=== PATIENT | male | born 1995 | race Caucasian/White ===

== ENCOUNTER 2016-10-27 09:14 | Emergency (ER) | payer OTHER ==
--- NOTE | 2016-10-27 10:38 | DIAGNOSTIC IMAGING REPORT ---
PROCEDURE: XR FOREARM - LEFT INDICATION: TRAUMA/INJURY TECHNIQUE: AP and lateral views. COMPARISON: None. FINDINGS: Osseous structures are normal. IMPRESSION: 1. Normal left forearm.
--- NOTE | 2016-10-27 10:38 | DIAGNOSTIC IMAGING REPORT ---
PROCEDURE: XR FOREARM - LEFT INDICATION: TRAUMA/INJURY TECHNIQUE: AP and lateral views. COMPARISON: None. FINDINGS: Osseous structures are normal. IMPRESSION: 1. Normal left forearm.
--- NOTE | 2016-10-27 11:08 | ED NURSING NOTES ---
Clinical Report - Nurses [place] [address] [address] [place] [address] 10/27/2016 9:17 Patient: GREGORIO ROSARIO TRIAGE Triage time 09:24. Acuity: LEVEL 3. Chief Complaint: INJURY TO THE LEFT FOREARM. Alert. No acute distress. ARCELIA COMA SCORE: [place] Coma Scale: 15- eyes open spontaneously (4); best verbal response- oriented x 4 (5); best motor response- obeys commands (6). --09:30 Jemima Pisano R.N. 09:24 10/27/16. BP: 114/54. HR: 63. RR: 16. O2 saturation: 100%. Temp: 97.6 F (oral). Pain level now: 10. --09:30 Jemima Pisano R.N. Weight: 58.9 kg stated. Height/Length: 70 inches Per Patient. BMI: 18.6. --09:27 Jemima Pisano R.N. Medications None. --09:25 Jemima Pisano R.N. Medication/allergy information source: the patient. --09:30 Jemima Pisano R.N. Allergies Penicillins. --09:25 Jemima Pisano R.N. History Arrived by private vehicle. Historian: patient. Unaccompanied. Primary physician (none). This occurred yesterday. Mechanism of injury: a single blow with a tool. PAST MEDICAL HX: Tetanus status: unknown. SOCIAL HX: Heavy tobacco smoker- less than 1 pack per day. Alcohol use; consumes two beers a week. No drug use. FALL RISK ASSESSMENT: Fall risk assessment completed. No fall risk identified. FUNCTIONAL ASSESSMENT: Functional assessment: no impairments noted. LEARNING NEEDS ASSESSMENT: The learning needs assessment revealed no barriers. --09:30 Jemima Pisano R.N. PROBLEMS: no known problems. ADDITIONAL SURGERIES: no known surgeries. Assessment GENERAL / NEURO / PSYCH: Alert. Oriented X 4. Appears in no acute distress. Patient appears calm and cooperative. RESPIRATORY: Respirations not labored. SKIN: Skin is warm and dry. --09:30 Jemima Pisano R.N. Interventions ID and allergy band on patient. To treatment room. --09:30 Jemima Pisano R.N. PHYSICAL ASSESSMENT 09:32 10/27/16. Ambulatory to room. GENERAL / NEURO / PSYCH: Oriented X 4. Alert. Appears in no acute distress. SKIN: Skin is warm and dry. ( swelling noted above left wrist). --09:32 Jemima Pisano R.N. NURSING PROGRESS NOTES 09:33 10/27/16. Cold pack applied. Call light placed in reach. Side rails up x 1. Bed placed in lowest position. Brakes of bed on. --09:33 Jemima Pisano R.N. 09:33 10/27/16. Patient ready for evaluation. --09:33 Jemima Pisano R.N. Cold pack applied. --09:53 Jemima Pisano R.N. DISPOSITION / DISCHARGE Departure time: 11:Oct 27 2016. Condition at departure: improved. No learning barriers present. Discharge instructions provided and reviewed with the patient. Reviewed warnings. Reviewed medication(s). Treatments reviewed. Reviewed referrals. Patient verbalized understanding. Written instructions provided in Ivorian. The patient was discharged home. He left the Emergency Department ambulatory and via private vehicle. Patient driving. --11:26 Ankush Lamas R.N. 11:24 10/27/16. BP: 122/58. HR: 88. RR: 18. O2 saturation: 99%. Temp: 98.6 F. Pain level now 5/10. --11:26 Ankush Lamas R.N. Locked/Released at 10/27/2016 18:54 by Ankush Lamas R.N.
--- NOTE | 2016-10-27 11:08 | ED NURSING NOTES ---
Clinical Report - Nurses [place] [address] [place] [address] 10/27/2016 9:17 Patient: GREGORIO ROSARIO TRIAGE Triage time 09:24. Acuity: LEVEL 3. Chief Complaint: INJURY TO THE LEFT FOREARM. Alert. No acute distress. ARCELIA COMA SCORE: [place] Coma Scale: 15- eyes open spontaneously (4); best verbal response- oriented x 4 (5); best motor response- obeys commands (6). --09:30 Jemima Pisano R.N. 09:24 10/27/16. BP: 114/54. HR: 63. RR: 16. O2 saturation: 100%. Temp: 97.6 F (oral). Pain level now: 10. --09:30 Jemima Pisano R.N. Weight: 58.9 kg stated. Height/Length: 70 inches Per Patient. BMI: 18.6. --09:27 Jemima Pisano R.N. Medications None. --09:25 Jemima Pisano R.N. Medication/allergy information source: the patient. --09:30 Jemima Pisano R.N. Allergies Penicillins. --09:25 Jemima Pisano R.N. History Arrived by private vehicle. Historian: patient. Unaccompanied. Primary physician (none). This occurred yesterday. Mechanism of injury: a single blow with a tool. PAST MEDICAL HX: Tetanus status: unknown. SOCIAL HX: Heavy tobacco smoker- less than 1 pack per day. Alcohol use; consumes two beers a week. No drug use. FALL RISK ASSESSMENT: Fall risk assessment completed. No fall risk identified. FUNCTIONAL ASSESSMENT: Functional assessment: no impairments noted. LEARNING NEEDS ASSESSMENT: The learning needs assessment revealed no barriers. --09:30 Jemima Pisano R.N. PROBLEMS: no known problems. ADDITIONAL SURGERIES: no known surgeries. Assessment GENERAL / NEURO / PSYCH: Alert. Oriented X 4. Appears in no acute distress. Patient appears calm and cooperative. RESPIRATORY: Respirations not labored. SKIN: Skin is warm and dry. --09:30 Jemima Pisano R.N. Interventions ID and allergy band on patient. To treatment room. --09:30 Jemima Pisano R.N. PHYSICAL ASSESSMENT 09:32 10/27/16. Ambulatory to room. GENERAL / NEURO / PSYCH: Oriented X 4. Alert. Appears in no acute distress. SKIN: Skin is warm and dry. ( swelling noted above left wrist). --09:32 Jemima Pisano R.N. NURSING PROGRESS NOTES 09:33 10/27/16. Cold pack applied. Call light placed in reach. Side rails up x 1. Bed placed in lowest position. Brakes of bed on. --09:33 Jemima Pisano R.N. 09:33 10/27/16. Patient ready for evaluation. --09:33 Jemima Pisano R.N. Cold pack applied. --09:53 Jemima Pisano R.N. DISPOSITION / DISCHARGE Departure time: 11:Oct 27 2016. Condition at departure: improved. No learning barriers present. Discharge instructions provided and reviewed with the patient. Reviewed warnings. Reviewed medication(s). Treatments reviewed. Reviewed referrals. Patient verbalized understanding. Written instructions provided in Nauruan. The patient was discharged home. He left the Emergency Department ambulatory and via private vehicle. Patient driving. --11:26 Ankush Lamas R.N. 11:24 10/27/16. BP: 122/58. HR: 88. RR: 18. O2 saturation: 99%. Temp: 98.6 F. Pain level now 5/10. --11:26 Ankush Lamas R.N. Locked/Released at 10/27/2016 18:54 by Ankush Lamas R.N.
--- NOTE | 2016-10-27 11:08 | ED CLINICAL REPORT ---
Clinical Report - Physicians/Mid Levels [place] [address] [place] [address] 10/27/2016 9:17 Patient: GREGORIO ROSARIO Time Seen: 09:23. Arrived- By private vehicle. Historian- patient. HISTORY OF PRESENT ILLNESS Chief Complaint: Injury to left forearm. The injury happened yesterday. Patient did not fall. This was not an incised wound, caused by a direct blow or a crush injury or twisting injury. Occurred at work. Patient is experiencing moderate pain. No other injury. REVIEW OF SYSTEMS The patient has had swelling. No tingling, numbness, weakness, suspected foreign body or skin laceration. All systems otherwise negative, except as recorded above. PAST HISTORY Problems: no known problems. Additional Surgeries: no known surgeries. Medications: None. Allergies: Penicillins. SOCIAL HISTORY Smoker- current status unknown. Alcohol use. No drug use. ADDITIONAL NOTES The nursing notes have been reviewed. PHYSICAL EXAM Vital Signs: 10/27/2016 09:24 BP: 114/54. HR: 63. RR: 16. O2 saturation: 100%. Temp: 97.6 F. Pain level now: 4/10. Have been reviewed. Appearance: Alert. Oriented X3. No acute distress. Head: Head atraumatic. Eyes: Pupils equal, round and reactive to light. Eyes normal inspection. ENT: Nose normal. Neck: Normal inspection. Neck supple. CVS: Pulses normal. Respiratory: No respiratory distress. Back: ROM normal. Skin: Skin intact. Skin warm and dry. Normal skin color. Normal skin turgor. Extremities: Left forearm: moderate tenderness and swelling located in the mid dorsal and radial aspect of forearm. Neurovascular intact distally. No erythema, laceration, abrasion, ecchymosis or puncture wound. No foreign body or deformity. Upper extremity otherwise negative. Extremities otherwise negative. Neuro, Vascular and Tendons: Vascular status intact. Sensation intact. Motor intact. Tendon function intact. Neuro: Oriented X 3. No motor deficit. No sensory deficit. LABS, X-RAYS, AND EKG Lt Forearm X-ray: No fracture. Normal alignment. No bony lesion, air in the soft tissue or foreign body. Soft tissues normal. Joint spaces normal. Views: AP and lateral. Technique: good. The X-rays were independently viewed by me, interpreted by the radiologist and contemporaneously by me and discussed with the radiologist. Prior films were not available for comparison. Pulse Oximetry: 10/27/2016 09:24 O2 saturation: 100%. (FIO2 - room air). Interpretation: normal. PROGRESS AND PROCEDURES Course of Care: X-ray was performed, and negative. Patient counseled in person regarding the patient's stable condition, test results, diagnosis and need for follow-up. Concerns were addressed. Old medical records reviewed. Disposition: Discharged. Condition: stable. CLINICAL IMPRESSION Contusion to the left forearm. INSTRUCTIONS Apply ice for 20 minutes three times a day as needed and until better. Don't apply ice directly to skin and don't use while asleep. Warnings: GENERAL WARNINGS: Return or contact your physician immediately if your condition worsens or changes unexpectedly, if not improving as expected, or if other problems arise. Follow-up: Follow up with your doctor as needed. Understanding of the discharge instructions verbalized by patient. (Electronically signed by Bronwyn Huertas MD 10/31/2016 6:26)
--- NOTE | 2016-10-27 11:08 | ED CLINICAL REPORT ---
Clinical Report - Physicians/Mid Levels [place] [address] [place] [address] 10/27/2016 9:17 Patient: GREGORIO ROSARIO Time Seen: 09:23. Arrived- By private vehicle. Historian- patient. HISTORY OF PRESENT ILLNESS Chief Complaint: Injury to left forearm. The injury happened yesterday. Patient did not fall. This was not an incised wound, caused by a direct blow or a crush injury or twisting injury. Occurred at work. Patient is experiencing moderate pain. No other injury. REVIEW OF SYSTEMS The patient has had swelling. No tingling, numbness, weakness, suspected foreign body or skin laceration. All systems otherwise negative, except as recorded above. PAST HISTORY Problems: no known problems. Additional Surgeries: no known surgeries. Medications: None. Allergies: Penicillins. SOCIAL HISTORY Smoker- current status unknown. Alcohol use. No drug use. ADDITIONAL NOTES The nursing notes have been reviewed. PHYSICAL EXAM Vital Signs: 10/27/2016 09:24 BP: 114/54. HR: 63. RR: 16. O2 saturation: 100%. Temp: 97.6 F. Pain level now: 4/10. Have been reviewed. Appearance: Alert. Oriented X3. No acute distress. Head: Head atraumatic. Eyes: Pupils equal, round and reactive to light. Eyes normal inspection. ENT: Nose normal. Neck: Normal inspection. Neck supple. CVS: Pulses normal. Respiratory: No respiratory distress. Back: ROM normal. Skin: Skin intact. Skin warm and dry. Normal skin color. Normal skin turgor. Extremities: Left forearm: moderate tenderness and swelling located in the mid dorsal and radial aspect of forearm. Neurovascular intact distally. No erythema, laceration, abrasion, ecchymosis or puncture wound. No foreign body or deformity. Upper extremity otherwise negative. Extremities otherwise negative. Neuro, Vascular and Tendons: Vascular status intact. Sensation intact. Motor intact. Tendon function intact. Neuro: Oriented X 3. No motor deficit. No sensory deficit. LABS, X-RAYS, AND EKG Lt Forearm X-ray: No fracture. Normal alignment. No bony lesion, air in the soft tissue or foreign body. Soft tissues normal. Joint spaces normal. Views: AP and lateral. Technique: good. The X-rays were independently viewed by me, interpreted by the radiologist and contemporaneously by me and discussed with the radiologist. Prior films were not available for comparison. Pulse Oximetry: 10/27/2016 09:24 O2 saturation: 100%. (FIO2 - room air). Interpretation: normal. PROGRESS AND PROCEDURES Course of Care: X-ray was performed, and negative. Patient counseled in person regarding the patient's stable condition, test results, diagnosis and need for follow-up. Concerns were addressed. Old medical records reviewed. Disposition: Discharged. Condition: stable. CLINICAL IMPRESSION Contusion to the left forearm. INSTRUCTIONS Apply ice for 20 minutes three times a day as needed and until better. Don't apply ice directly to skin and don't use while asleep. Warnings: GENERAL WARNINGS: Return or contact your physician immediately if your condition worsens or changes unexpectedly, if not improving as expected, or if other problems arise. Follow-up: Follow up with your doctor as needed. Understanding of the discharge instructions verbalized by patient. (Electronically signed by Bronwyn Huertas MD 10/31/2016 6:26)
--- NOTE | 2016-10-27 11:08 | ED ORDER SUMMARY ---
..... Patient: GREGORIO ROSARIO OrderSheet [facility] VisitID: [id number] [address] [place] [address] 21y, M Registration Date/Time: 10/27/2016 ORDER SHEET Weight: 58.9 kg (stated) Allergies: Penicillins GENERAL ORDERS: Forearm Left Urgent (09:39 10/27/2016 Avinash SERRA) ([facility] 9:47 [facility]) MEDICATION ORDERS: IV FLUIDS: ORDER SHEET NOTES: [Electronically signed by Ankush Lamas R.N. (18:54 10/27/2016)] [Electronically signed by Bronwyn Huertas MD (06:26 10/31/2016)] [Electronically locked/signed by Ankush Lamas R.N. (18:54 10/27/2016)]
--- NOTE | 2016-10-27 11:08 | ED ORDER SUMMARY ---
..... Patient: GREGORIO ROSARIO OrderSheet [facility] VisitID: [id number] [address] [place] [place] [address] 21y, M Registration Date/Time: 10/27/2016 ORDER SHEET Weight: 58.9 kg (stated) Allergies: Penicillins GENERAL ORDERS: Forearm Left Urgent (09:39 10/27/2016 Avinash SERRA) ([facility] 9:47 [facility]) MEDICATION ORDERS: IV FLUIDS: ORDER SHEET NOTES: [Electronically signed by Ankush Lamas R.N. (18:54 10/27/2016)] [Electronically signed by Bronwyn Huertas MD (06:26 10/31/2016)] [Electronically locked/signed by Ankush Lamas R.N. (18:54 10/27/2016)]
--- NOTE | 2016-10-31 06:27 | ED MAR SUMMARY ---
..... Medication Administration Record [facility] [address] [place], [place] [id number] Patient: GREGORIO ROSARIO Visit ID: [id number] 21y, M Weight: 58.9 kg Height/Length: 70 in BMI: 18.6 ALLERGIES: Penicillins
--- NOTE | 2016-10-31 06:27 | ED DISCHARGE INSTRUCTIONS ---
Patient: GREGORIO ROSARIO General Instructions [facility] VisitID: [id number] [place] [address] 21y, M Registration Date/Time: 10/27/2016 Contusion to the left forearm. INSTRUCTIONS Apply ice for 20 minutes three times a day as needed and until better. Don't apply ice directly to skin and don't use while asleep. Warnings: GENERAL WARNINGS: Return or contact your physician immediately if your condition worsens or changes unexpectedly, if not improving as expected, or if other problems arise. Follow-up: Follow up with your doctor as needed. Understanding of the discharge instructions verbalized by patient. ADDITIONAL INFORMATION Contusion:Upper Extremity You have a contusion of your upper extremity (arm, wrist, hand or fingers). This causes local pain, swelling and sometimes bruising. There are no broken bones. This injury takes a few days to a few weeks to heal. A sling may be provided for comfort and arm support. Home Care: 1) Keep your arm elevated to reduce pain and swelling. This is very important during the first 48 hours. 2) Apply an ice pack (ice cubes in a plastic bag, wrapped in a towel) over the injured area for 20 minutes every 1-2 hours the first day for pain relief. Continue this 3-4 times a day until the pain and swelling goes away. 3) You may use acetaminophen (Tylenol) or ibuprofen (Motrin, Advil) to control pain, unless another pain medicine was prescribed. [ NOTE : If you have chronic liver or kidney disease or ever had a stomach ulcer or GI bleeding, talk with your doctor before using these medicines.] 4) If a sling was provided, you may remove it to shower or bathe. Do not wear it for more than one week or it may cause joint stiffness. Follow Up with your doctor or this facility if you are not starting to improve within the next THREE days. [NOTE: If X-rays were taken, they will be reviewed by a radiologist. You will be notified of any new findings that may affect your care.] Get Prompt Medical Attention if any of the following occur: -- Pain or swelling increases -- Redness, warmth or drainage -- Hand or fingers becomes cold, blue, numb or tingly You have been given the following additional information: Contusion, Upper Extremity (Electronically signed by Bronwyn Huertas MD 10/31/2016 6:26)
--- NOTE | 2016-10-31 06:27 | ED MED RECONCILIATION SUMMARY ---
Patient: GREGORIO ROSARIO Medication Reconciliation Report [facility] VisitID: [id number] [address] [place] [address] 21y, M Registration Date/Time: 10/27/2016 Weight: 58.9 kg Height/Length: 70 in. BMI: 18.6 ALLERGIES: Penicillins The patient's Home Medications are listed below: NONE. The source(s) of the original Home Medication information: patient The following Medications were given to the patient in the Emergency Department: None. The following Medications were prescribed to the patient: None.
--- NOTE | 2016-10-31 06:27 | ED MAR SUMMARY ---
..... Medication Administration Record [facility] [address] [place], [place] [id number] Patient: GREGORIO ROSARIO Visit ID: [id number] 21y, M Weight: 58.9 kg Height/Length: 70 in BMI: 18.6 ALLERGIES: Penicillins
--- NOTE | 2016-10-31 06:27 | ED MED RECONCILIATION SUMMARY ---
Patient: GREGORIO ROSARIO Medication Reconciliation Report [facility] VisitID: [id number] [address] [place] [address] 21y, M Registration Date/Time: 10/27/2016 Weight: 58.9 kg Height/Length: 70 in. BMI: 18.6 ALLERGIES: Penicillins The patient's Home Medications are listed below: NONE. The source(s) of the original Home Medication information: patient The following Medications were given to the patient in the Emergency Department: None. The following Medications were prescribed to the patient: None.
== END 2016-10-27 11:20 | disposition home or self-care (01) ==
LOC: ED SRH 09:14
DX: S50.12XA Contusion of left forearm, initial encounter (principal); X58.XXXA Exposure to other specified factors, initial encounter; Y93.89 Activity, other specified; Y92.89 Other specified places as the place of occurrence of the external cause; Y99.0 Civilian activity done for income or pay; Z88.0 Allergy status to penicillin